=== PATIENT | female | born 1960 | race Caucasian/White ===

== ENCOUNTER → 2018-05-27 | Outpatient (CLI) | payer BC ==
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
== END ==
LOC: RADXRMAIN 13:10
PROVIDERS: ATTEND Family Medicine
DX: M25.511 Pain in right shoulder (principal)